=== PATIENT | male | born 1960 | race Caucasian/White ===

== ENCOUNTER 2020-07-13 15:18 | Outpatient (CLI) | payer BC ==
[2020-07-13 18:54] LABS: ALBUMIN 4.8 g/dL (3.2-5.5); ALBUMIN/GLOBULIN RATIO 1.6 (1.0-2.2); CALCIUM 10.1 mg/dL (8.5-10.3); CREATININE 0.6 mg/dL (0.6-1.2); TOTAL PROTEIN 7.8 g/dL (6.7-8.2)
[2020-07-13 19:01] LABS: BASOPHILS # (AUTO) 0.1 10^3/uL (0.0-0.1); BASOPHILS % (AUTO) 1.1 %; EOSINOPHILS # (AUTO) 0.1 10^3/uL (0.0-0.7); EOSINOPHILS % (AUTO) 2.9 %; HGB - HEMOGLOBIN 15.4 g/dL (14.0-18.0); LYMPHOCYTES # (AUTO) 1.2 10^3/uL (1.5-3.5); LYMPHOCYTES % (AUTO) 27.5 %; MEAN CORPUSCULAR HEMOGLOBIN 34.4 pg (27.0-31.0); MEAN CORPUSCULAR HGB CONC 34.4 g/dL (32.0-36.0); MONOCYTES # (AUTO) 0.5 10^3/uL (0.0-1.0); NEUTROPHILS # (AUTO) 2.6 10^3/uL (1.5-6.6); NEUTROPHILS % (AUTO) 58.3 %; PLT - PLATELET COUNT 198 10^3/uL (130-450); RED BLOOD COUNT 4.48 10^6/uL (4.70-6.10); RED CELL DISTRIBUTION WIDTH 14.3 % (12.0-15.0); WHITE BLOOD COUNT 4.5 x10^3/uL (4.8-10.8)
== END 2020-07-13 23:59 | disposition home or self-care (01) ==
LOC: LAB.WCP 15:18
PROVIDERS: ATTEND Internal Medicine Rheumatology
DX: M05.79 Rheumatoid arthritis with rheumatoid factor of multiple sites without organ or systems involvement (principal)
CPT/HCPCS: 36415; 80053; 85025; 85651

== ENCOUNTER 2021-01-25 08:00 | Outpatient (CLI) | payer BC ==
[2021-01-25 18:02] LABS: BASOPHILS % (AUTO) 0.9 %; EOSINOPHILS # (AUTO) 0.2 10^3/uL (0.0-0.7); EOSINOPHILS % (AUTO) 4.1 %; HCT - HEMATOCRIT 43.2 % (42.0-52.0); HGB - HEMOGLOBIN 14.5 g/dL (14.0-18.0); LYMPHOCYTES # (AUTO) 1.3 10^3/uL (1.5-3.5); LYMPHOCYTES % (AUTO) 30.2 %; MEAN CORPUSCULAR HEMOGLOBIN 33.6 pg (27.0-31.0); MEAN CORPUSCULAR HGB CONC 33.6 g/dL (32.0-36.0); MEAN CORPUSCULAR VOLUME 100.2 fL (80.0-94.0); MEAN PLATELET VOLUME 12.6 fL (7.4-11.4); MONOCYTES # (AUTO) 0.4 10^3/uL (0.0-1.0); MONOCYTES % (AUTO) 10.1 %; NEUTROPHILS # (AUTO) 2.4 10^3/uL (1.5-6.6); NEUTROPHILS % (AUTO) 54.5 %; PLT - PLATELET COUNT 174 10^3/uL (130-450); RED BLOOD COUNT 4.31 10^6/uL (4.70-6.10); RED CELL DISTRIBUTION WIDTH 13.5 % (12.0-15.0); WHITE BLOOD COUNT 4.4 x10^3/uL (4.8-10.8)
[2021-01-25 18:43] LABS: ALBUMIN 4.4 g/dL (3.2-5.5); ALBUMIN/GLOBULIN RATIO 1.5 (1.0-2.2); CALCIUM 9.4 mg/dL (8.5-10.3); CREATININE 0.7 mg/dL (0.6-1.2); TOTAL PROTEIN 7.4 g/dL (6.7-8.2)
== END 2021-01-25 23:59 | disposition home or self-care (01) ==
LOC: LAB.WCP 08:00
PROVIDERS: ATTEND Internal Medicine Rheumatology
DX: M05.79 Rheumatoid arthritis with rheumatoid factor of multiple sites without organ or systems involvement (principal)
CPT/HCPCS: 36415; 80053; 85025; 85651

== ENCOUNTER 2022-08-27 13:25 | Outpatient (CLI) | payer BC ==
--- NOTE | 2022-08-28 16:47 | SLEEP CARE CONSULTATION ---
Information from patient questionnaire entered by Zaheer Lee. I have reviewed and concur with the information entered by Zaheer Lee. This document represents the service I personally performed and the decisions made by me, Marivel Gamboa MD, [facility]. History of Present Illness Service Date and Time: 08/27/2022 1325 Reason for Visit: New patient Chief Complaint: reports: Insomnia, Unrefreshed sleep Date of Onset: UNREFRESHED SLEEP DECADES, INSOMNIA 1YR Usual bedtime: 3105-7210 Time it takes to fall asleep: FEW MIN Snores at night: Yes Observed to quit breathing while asleep: Yes Sleeps alone due to snoring: No Number of times waking at night: 1-SEVERAL Reasons for waking at night: reports: Bathroom, Other (NOISE) Toss, Turn, or Twitch while sleeping: Yes Recalls having dreams: Yes Usually gets out of bed at: [id number] 0700 WEEKENDS Feels refreshed in the morning: No Morning headache: No Sleepy or fatigued during the day: Yes Ever fallen asleep while driving: No Takes day naps: No Dreams during day naps: No Prior sleep studies: Yes (FEB 2017 [facility] [place] [place]) Additional HPI information: I had the pleasure of seeing Mr. De Luna today regarding the possibility of him having a sleep disorder. As you know, he is a 62-year-old gentleman who complains of insomnia for about 5 years. He had an in-laboratory polysomnography in [place], [place] in 2017 showing mild obstructive sleep apnea- hypopnea with an AHI of 6.1 and 21.5% of the time with oxygen saturation between 80 and 89% (perico oxygen saturation was not reported). Oral appliance therapy was recommended but he never gotten the treatment. The patient tells me that he normally goes to bed around 9:30 - 10 pm, and it takes him approximately just a few minutes to fall asleep. He has been told that he snores loudly and irregularly at night. He has never been observed to stop breathing in his sleep. His sleeps in the same bed and her snore bothers him. He can recall waking up on the average of 3 - 5 times during the night. There is a lot of tossing and turning in his sleep. No somniloquy (sleep talking) or somnambulism (sleep walking). Generally, he can recall having dreams. In the morning he usually gets up out of the bed around 5 - 7 a.m. not feeling refreshed nor rested. He usually does not have a morning headache. During the day he complains of feeling fatigued but not sleepy. His score on Fair[place] Sleepiness Scale is 4 out of 24. He never has fallen asleep while driving nor has had any accident due to sleepiness. He usually does not take naps during the day. 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 Patient is Single and lives in [place]. Have you smoked in the past 12 months: No Years of smokin Quit date: 2004 Alcohol use: Yes Caffeine use: Yes Caffeine amount and frequency: 4-5 CUPS DAILY Family History Family history of sleep disordered breathing: No Allergies and Home Medications Known drug allergies: No Drug allergies reviewed: Yes Home medication list reviewed: Yes Review of Systems Weight gain over past 5 years: 15 Cardiovascular: denies: high blood pressure, palpitations, chest pain, irregular heart rate or pulse, leg or foot swelling, have to sleep sitting up, other Respiratory: denies: shortness of breath, wheeze, sputum production, chronic cough, other Gastrointestinal: denies: heartburn, difficulty swallowing, nausea, vomitting, diarrhea, abdominal pain, other Urinary: denies: incontinence, frequency, urgency, impotence, other Neurological: denies: headaches, seizure, head trauma, disorientation, speech dysfunction, gait or balance problems, fainting or unconsciousness, other Psychiatric: denies: Attention Deficit Hyperactivity, anxiety, depression, mood disorder, claustrophobia, other Ear/Nose/Throat: reports: tonsillectomy, wisdom teeth removed Endocrine: denies: thyroid disease, history of goiter, sluggishness, too hot or cold, excessive thirst, increased appetite, increased urination, unexplained weakness, other Musculoskeletal: reports: back pain Immunologic: denies: sneezing, rash, itching, allergies to food or environment, other Physical Exam Vital signs obtained and entered by: ZAHEER Antoine MA Blood Pressure: 146/90 (LEFT ARM) Cuff size: regular Heart Rate: 75 O2 Saturation: 96 Height: 6 ft 1 in Weight: 243 lb Body Mass Index: 32.0 BMI Classification: Obese Neck circumference: 17.25 Mood/affect: normal HEENT: No craniofacial malformation Nostrils: patent to airflow Turbinates: normal Septum: midline Mouth and throat: narrow oropharynx Soft palate: long Hard palate: normal Uvula: normal Uvula visualization: 50% Mallampati Class II Tongue: normal in size Tonsils: absent bilaterally Chin and jaw: normal size and position Neck: normal w/o lymphadenopathy or thyromegaly Heart: regular rate and rhythm Lungs: clear bilaterally Extremities: no edema or clubbing Neurologic: intact Impression and Plan IMPRESSION: 1. Obstructive Sleep Apnea-Hypopnea Syndrome, mild, as previously diagnosed, not yet treated. The sleep-related breathing disorder may or may not contribute to his insomnia complaint. Narrow oropharynx and obesity are common predisposing factors for obstructive sleep apnea-hypopnea syndrome. recommend proceeding to polysomnography to confirm the diagnosis and to reassess the severity. A home sleep apnea test (HSAT) is not appropriate because the sleep- related breathing disorder is mild can be easily missed by the test. 2 Insomnia, involving mainly the sleep maintenance. He said insomnia has improved after he started reading a book called [employer]. His wifes loud snore is a contributing factor. He also turns on his phone every time he wakes up. Because he is not sleepy during the day, I explained to him that he has been getting adequate sleep all along and his goal should be to consolidate sleep, and not to increase sleep. Plan: 1. Schedule an in-laboratory polysomnography and return in 1 to 2 weeks after the study to discuss result and initiate therapy if necessary. 2. Maintain a regular wake up time and spend no more than 7 hours in bed at night. Avoid naps. 3. Avoid looking at the clock or phone when he wakes up during the night. 4. Attempt to lose weight. Follow up with Sleep Care in: 1-2 months Visit Type: In Office Time Spent with Patient (minutes): 15 Provider Statement: I spent 100% of the Face to Face Visit with the patient with greater than 50% spent counseling the patient and coordination of care.
[2022-08-28 16:48] VITALS: BP 146/90
== END 2022-08-27 13:26 | disposition home or self-care (01) ==
LOC: SC 13:25
PROVIDERS: ATTEND Internal Medicine Pulmonary Disease
DX: G47.33 Obstructive sleep apnea (adult) (pediatric) (principal); G47.00 Insomnia, unspecified; E66.9 Obesity, unspecified; Z68.32 Body mass index [BMI] 32.0-32.9, adult; Z87.891 Personal history of nicotine dependence
CPT/HCPCS: 99202; 99212

== ENCOUNTER 2022-10-24 19:34 | Outpatient (CLI) | payer BC | END 2022-10-24 19:35 | disposition home or self-care (01) | LOC: SC 19:34 | PROVIDERS: ATTEND Internal Medicine Pulmonary Disease | DX: G47.33 Obstructive sleep apnea (adult) (pediatric) (principal) | CPT/HCPCS: 95810 ==

== ENCOUNTER 2022-11-19 09:31 | Outpatient (CLI) | payer BC ==
[2022-11-19 13:49] VITALS: BP 120/74
--- NOTE | 2022-11-19 13:49 | SLEEP CARE CONSULTATION ---
Information from patient questionnaire entered by Vanessa Lee. I have reviewed and concur with the information entered by Vanessa Lee. This document represents the service I personally performed and the decisions made by me, Marivel Gamboa MD, [facility]. History of Present Illness Service Date and Time: 11/19/2022 0931 Initial [place] Sleepiness Scale score: 4 (08-27-22) Current [place] Sleepiness Scale score: 4 (11/19/22) Additional HPI information: Mr. De Luna returned for follow up of the sleep study he had on 10-24-22. The polysomnography showed that the patient had normal sleep efficiency. The sleep architecture was relatively normal considering the first-night effect. Respiratory monitoring showed mild obstructive sleep apnea-hypopnea (AHI = 6.8) associated with frequent arousals, oxyhemoglobin desaturation and mild hypoxia (perico oxygen saturation of 82%). The respiratory events occurred mainly during REM sleep (supine AHI = 9.0; non-supine = 6.38). Snore was very loud in intensity. There was no significant periodic leg movement of sleep. Cardiac rhythm was normal sinus rhythm without significant arrhythmia. No abnormal behavior (parasomnia) observed during the night. The patient was informed of these findings. I explained to him the pathophysiology behind obstructive sleep apnea. We then spent quite a bit of time discussing different treatment options. For mild obstructive sleep apnea, surgery and oral appliance are alternatives to nasal CPAP therapy but in moderate or severe cases, nasal CPAP is the most effective and reliable treatment. Weight loss in an obese individual is strongly recommended. After some discussion, he opted to go with the nasal CPAP therapy. I explained to him how CPAP machine works and what to expect when using the machine. He is encouraged to use CPAP every night especially in the first 2 to 3 nights in order to get used to it. He should call his CPAP supplier or me to discuss any mechanical problem that may occur. If he snores or feels like he is not getting enough air from the machine, he should notify me and I will increase the pressure. Sleep Study - Results Type of Sleep Study: Polysomnography (COMPLETED 10/24/22) Prior sleep studies: Yes (FEB 2017 [facility]) Allergies and Home Medications Drug allergies reviewed: Yes Home medication list reviewed: Yes Review of Systems Review of systems same as previous: Yes Physical Exam Vital signs obtained and entered by: VANESSA Antoine MA Blood Pressure: 120/74 (LEFT ARM) Cuff size: regular Heart Rate: 77 O2 Saturation: 96 Height: 6 ft 1 in Weight: 244 lb Body Mass Index: 32.1 BMI Classification: Obese Impression and Plan IMPRESSION: 1. Obstructive Sleep Apnea-Hypopnea Syndrome, mild, associated with mild hypoxemia and sleep fragmentation. Possibly, this is the cause of the patients symptoms of frequent awakenings, and unrefreshed sleep. As mentioned above, the patient will be started an autoCPAP set between 5 and 15 cmH2O. Depending on his response and compliance he may be brought back for an overnight CPAP titration study. PLAN: 1. Prescription made for an autoCPAP, heated humidifier, and related supplies. 2. Attempt to lose weight and avoid alcohol consumption near bedtime. 3. Return for follow up after one month of using the CPAP. Counseling Topics: Weight control Prescriptions: Auto CPAP Follow up with Sleep Care in: 1-2 months Visit Type: In Office Time Spent with Patient (minutes): 15 Provider Statement: I spent 100% of the Face to Face Visit with the patient with greater than 50% spent counseling the patient and coordination of care.
== END 2022-11-19 09:32 | disposition home or self-care (01) ==
LOC: SC 09:31
PROVIDERS: ATTEND Internal Medicine Pulmonary Disease
DX: G47.33 Obstructive sleep apnea (adult) (pediatric) (principal); E66.9 Obesity, unspecified; Z68.32 Body mass index [BMI] 32.0-32.9, adult
CPT/HCPCS: 99212

== ENCOUNTER 2024-01-29 12:45 | Outpatient (CLI) | payer BC ==
--- NOTE | 2024-01-29 13:30 | SLEEP CARE CONSULTATION ---
Information from patient questionnaire entered by Vanessa Lee. I have reviewed and concur with the information entered by Vanessa Lee. This document represents the service I personally performed and the decisions made by me, Patti Kaye ARNP. History of Present Illness Service Date and Time: 01/29/2024 1245 Previous diagnosis: Mild, Obstructive Sleep Apnea-Hypopnea Syndrome AHI: 6.8 (on 10/24/2022) Reason for follow up: annual (LAST SEEN 11/2022 NO CPAP) Prior sleep studies: Yes (FEB 2017 [facility] [place]) Type of Sleep Study: Polysomnography (COMPLETED 10/24/22) HPI additional information: NINA JAMISON was diagnosed to have mild, AHI 6.8, obstructive sleep apnea- hypopnea syndrome and returned today for CPAP therapy annual follow-up. He was last seen in our office in 11/2022. He is currently not using a CPAP. He was set up on a CPAP and tried to use it for about 2 months. He got used to putting it on and going to sleep but he would wake up feeling short of air in the mask and take it off. He says he only made 4+ hours once in 2 months. He comes back today because he still has issues in being able to stay asleep the full night. He will wake up anywhere between 1:30 AM and 4 AM and is not able to get back to sleep easily. If he does doze off he does not feel he sleeps well and is tired during the day. He comes in today to discuss ways to be able to get better sleep. Sleep Study - Results Type of Sleep Study: Polysomnography (COMPLETED 10/24/22) Prior sleep studies: Yes (FEB 2017 [facility] [place]) Subjective Initial [place] Sleepiness Scale score: 4 (08-27-22) Current [place] Sleepiness Scale score: 3 (01/29/24) Allergies and Home Medications Known drug allergies: No Drug allergies reviewed: Yes Home medication list reviewed: Yes (no changes) Review of Systems Review of systems same as previous: Yes (NO CHANGE) Physical Exam Vital signs obtained and entered by: VANESSA Antoine MA Blood Pressure: 141/83 (LEFT ARM) Cuff size: regular Heart Rate: 78 O2 Saturation: 96 Height: 6 ft 1 in Weight: 252 lb 12.8 oz Body Mass Index: 33.3 BMI Classification: Obese Impression and Plan 1. Obstructive Sleep Apnea-Hypopnea Syndrome, mild. I reviewed with patient strategies to be able to get better sleep by getting up at same time every morning and not laying in bed if unable to got to sleep after about 15-20 minutes. I also review with him that with sleep apnea he may be having interrupted sleep from the apneas. I advised trying something else to control sleep apnea to see if this will improve his overall sleep. After some discussion, he opted to try an oral appliance, MAD, to see if controlling sleep apnea improved his overall sleep quality and restfulness. He voice agreement. A prescription was given to start process. Patient advised to check insurance to see if oral appliance is covered. I will have patient follow up in about 3 months to check effectiveness of treatment. If reduction of symptoms and comfortable with treatment, a polysomnography will be ordered using the oral appliance to check efficacy of treatment.Patient's apnea severity and rationale for treatment to reduce apnea, improve sleep quality and reduce cardiovascular and cerebrovascular events was reviewed. 2. Obesity, unspecified. Currently patients BMI is 33.3. Obesity increases the risk of apnea, CPAP pressure requirements and overall health risks especially cardiovascular and diabetes. Thus patient is advised to lose weight. * Oral appliance order * Attempt to lose weight * Call this office if any problems * Return for follow up in about one month after obtaining oral device, or sooner if concerns arise Counseling Topics: Weight loss health impact Prescriptions: Other (Oral appliance) Visit Type: In Office Time Spent with Patient (minutes): 28 Provider Statement: I spent 100% of the Face to Face Visit with the patient with greater than 50% spent counseling the patient and coordination of care.
[2024-01-29 13:49] VITALS: BP 141/83; O2SAT 96
== END 2024-01-29 12:46 | disposition home or self-care (01) ==
LOC: SC 12:45
PROVIDERS: ATTEND Nurse Practitioner Family
DX: G47.33 Obstructive sleep apnea (adult) (pediatric) (principal); E66.9 Obesity, unspecified; Z68.33 Body mass index [BMI] 33.0-33.9, adult
CPT/HCPCS: 99212; 99213